=== PATIENT | female | born 1980 | race Caucasian/White ===

== ENCOUNTER 2016-04-14 23:47 | Emergency (ER) | payer OTHER ==
[2016-04-15] MEDS ORDERED: LORazepam 2 MG/ML MDV IVPUSH ONE ×2 (01:11→03:32)
[2016-04-15] MEDS ORDERED: Sodium Chloride 0.9% 1,000 ML IV SCH ×2 (01:15→03:30)
[2016-04-15] MEDS ORDERED: Ondansetron 4 MG/2 ML SDV IVPUSH ONE (02:20)
[2016-04-15] MEDS ORDERED: HYDROmorphone 1 MG/ML Syringe IVPUSH ONE (02:41)
[2016-04-15] MEDS ORDERED: cefTRIAXone 1 GM in Sodium Chloride 0.9% 50 ML IV ONE (02:41)
--- NOTE | 2016-04-15 04:45 | EDM.PDOC ---
ED HPI GI/ABDOMINAL - General Chief Complaint: Gastrointestinal Problem Stated Complaint: LOWER ABD PAIN Time Seen by Provider: 04/15/16 01:11 Source: Reports: Patient History Limitations: Reports: No limitations - History of Present Illness INITIAL COMMENTS - FREE TEXT/NARRATIVE: Nausea and vomiting: This is a 36-year-old female presents emergency room with her son, reports yesterday evening started to feel sick to her stomach began to have emesis intermittently throughout the night and day. Today is having dry heaves and severe abdominal cramping and she is now here for evaluation. Timing/Duration: Reports: Day(s): Location: generalized Quality: Reports: cramping Severity: severe Improves with: Reports: other Worsens with: Reports: other Context: Reports: sick contact Associated Symptoms (-Female): Reports: diarrhea, fever/chills, loss of appetite, nausea/vomiting - Related Data Allergies/ADRs: Allergies Allergy/AdvReac Type Severity Reaction Status Date / Time No Known Allergies Allergy Verified 04/15/16 00:59 Home Meds: Home Meds Ascorbic Acid [Vitamin C] 1,000 mg PO DAILY 04/15/16 [History] Gabapentin [Gabapentin] 300 mg PO BID 04/15/16 [History] metFORMIN [Glucophage XR] 500 mg PO DAILY 04/15/16 [History] Past Medical History - Past Health History Medical/Surgical History: Denies Medical/Surgical History Gastrointestinal History: Reports: Cholelithiasis 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: Musculoskeletal History: Reports: Back pain, chronic, Other (see below) Other Musculoskeletal History: 3 bulging discs - Infectious Disease History Infectious Disease History: Reports: Chicken pox - Past Surgical History GI Surgical History: Reports: Cholecystectomy Female Surgical History: Reports: Tubal ligation Social & Family History - Tobacco Use Smoking Status *Q: Current Status Unknown Years of Tobacco use: 20 Used Tobacco, but Quit: No Second Hand Smoke Exposure: No - Alcohol Use Days Per Week of Alcohol Use: 0 - Recreational Drug Use Recreational Drug Use: No - Living Situation & Occupation 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 Lives near in [facility]) ED ROS GENERAL - Review of Systems Review Of Systems: See Below Constitutional: Reports: fever, chills, malaise, weakness, decreased appetite, other (Dry heaves unable to eat since yesterday) HEENT: Reports: No symptoms Respiratory: Reports: no symptoms Cardiovascular: Reports: No symptoms Endocrine: Reports: no symptoms GI/Abdominal: Reports: Abdominal pain, Diarrhea, Nausea, Vomiting : Reports: frequency, pain, urgency, other (Concerns of possible bladder infection) Musculoskeletal: Reports: no symptoms Skin: Reports: no symptoms Neurological: Reports: no symptoms Psychiatric: Reports: No symptoms Hematologic/Lymphatic: Reports: no symptoms Immunologic: Reports: no symptoms ED EXAM, GI/ABD - Physical Exam Exam: See Below Exam Limited By: No limitations General Appearance: alert, anxious, moderate distress, other (Active vomiting, dry heaves noted in exam room.) Eyes: bilateral: normal appearance Ears: normal external exam, normal canal, hearing grossly normal, normal TMs Nose: normal inspection, normal mucosa, no blood Throat/Mouth: Normal inspection, Normal lips, Normal teeth, Normal gums, Normal oropharynx, Normal voice, No airway compromise Head: atraumatic, normocephalic Neck: normal inspection, supple, non-tender, full range of motion Respiratory/Chest: no respiratory distress, lungs clear, normal breath sounds, no accessory muscle use, chest non-tender Cardiovascular: normal peripheral pulses, regular rate, rhythm, no edema, no gallop, no JVD, no murmur, no rub GI/Abdominal: normal bowel sounds, soft, tenderness (Generalized) (Female) Exam: Deferred Rectal (Female) Exam: Deferred Back Exam: normal inspection, full range of motion Extremities: normal inspection Neurological: alert, oriented, normal cognition, normal gait, normal reflexes, no motor/sensory deficits Psychiatric: anxious, tearful Skin Exam: Warm, Dry, Intact, Normal color, No rash Lymphatic: no adenopathy Course - Vital Signs Last Recorded V/S: Last Vital Signs Temp 36.6 C 04/15/16 00:54 Pulse 78 04/15/16 00:54 Resp 26 H 04/15/16 00:54 BP 136/76 04/15/16 00:54 Pulse Ox 100 04/15/16 00:54 - Orders/Labs/Meds Orders: Active Orders 24 hr Category Date Time Status Abdomen Pelvis wo Cont [CT] Stat Exams 04/15/16 02:15 Taken Sodium Chloride 0.9% [Normal Saline] 1,000 ml Med 04/15/16 01:15 Active IV ASDIRECTED Sodium Chloride 0.9% [Normal Saline] 1,000 ml Med 04/15/16 03:30 Active IV ASDIRECTED Medication Orders Sodium Chloride (Normal Saline) 1,000 mls @ 999 mls/hr IV ASDIRECTED JUAN Last Admin: 04/15/16 01:47 Dose: 999 mls/hr Sodium Chloride (Normal Saline) 1,000 mls @ 500 mls/hr IV ASDIRECTED JUAN Last Admin: 04/15/16 03:25 Dose: 500 mls/hr Labs: Laboratory Tests 04/15/16 04/15/16 04/15/16 Range/Units 01:37 01:38 02:36 WBC 17.2 H (4.5-11.0) K/uL RBC 4.96 (3.30-5.50) M/uL Hgb 15.2 H D (12.0-15.0) g/dL Hct 44.4 (36.0-48.0) % MCV 90 (80-98) fL MCH 31 (27-31) pg MCHC 34 (32-36) % Plt Count 227 (150-400) K/uL Neut % (Auto) 92 H (36-66) % Lymph % (Auto) 3 L (24-44) % [place] % (Auto) 4 (2-6) % Eos % (Auto) 0 L (2-4) % Baso % (Auto) 0 (0-1) % Sodium 141 (140-148) mmol/L Potassium 3.3 L (3.6-5.2) mmol/L Chloride 105 (100-108) mmol/L Carbon Dioxide 23 (21-32) mmol/L Anion Gap 16.3 H (5.0-14.0) mmol/L BUN 25 H D (7-18) mg/dL Creatinine 1.0 (0.6-1.0) mg/dL Est Cr Clr Drug Dosing 82.06 mL/min Estimated GFR (MDRD) > 60 (>60) Glucose 131 H (74-106) mg/dL Calcium 7.9 L (8.5-10.1) mg/dL Urine Color Urine Appearance Urine pH (4.5-8.0) Ur Specific [place] (1.008-1.030) Urine Protein (NEGATIVE) mg/dL Urine Glucose (UA) (NEGATIVE) mg/dL Urine Ketones (NEGATIVE) mg/dL Urine Occult Blood (NEGATIVE) Urine Nitrite (NEGATIVE) Urine Bilirubin (NEGATIVE) Urine Urobilinogen (NORMAL) mg/dL Ur Leukocyte Esterase (NEGATIVE) Urine RBC (0-5) Urine WBC (0-5) Ur Epithelial Cells Amorphous Sediment Urine Bacteria Urine Mucus Urine HCG, Qual Negative 04/15/16 Range/Units 02:36 WBC (4.5-11.0) K/uL RBC (3.30-5.50) M/uL Hgb (12.0-15.0) g/dL Hct (36.0-48.0) % MCV (80-98) fL MCH (27-31) pg MCHC (32-36) % Plt Count (150-400) K/uL Neut % (Auto) (36-66) % Lymph % (Auto) (24-44) % [place] % (Auto) (2-6) % Eos % (Auto) (2-4) % Baso % (Auto) (0-1) % Sodium (140-148) mmol/L Potassium (3.6-5.2) mmol/L Chloride (100-108) mmol/L Carbon Dioxide (21-32) mmol/L Anion Gap (5.0-14.0) mmol/L BUN (7-18) mg/dL Creatinine (0.6-1.0) mg/dL Est Cr Clr Drug Dosing mL/min Estimated GFR (MDRD) (>60) Glucose (74-106) mg/dL Calcium (8.5-10.1) mg/dL Urine Color [place] Urine Appearance Cloudy Urine pH 7.0 (4.5-8.0) Ur Specific [place] 1.015 (1.008-1.030) Urine Protein Negative (NEGATIVE) mg/dL Urine Glucose (UA) Normal (NEGATIVE) mg/dL Urine Ketones Negative (NEGATIVE) mg/dL Urine Occult Blood Negative (NEGATIVE) Urine Nitrite Negative (NEGATIVE) Urine Bilirubin Negative (NEGATIVE) Urine Urobilinogen 1 (NORMAL) mg/dL Ur Leukocyte Esterase Moderate (NEGATIVE) Urine RBC 5-10 H (0-5) Urine WBC 5-10 H (0-5) Ur Epithelial Cells Many Amorphous Sediment Few Urine Bacteria Few Urine Mucus Few Urine HCG, Qual Meds: Medications Generic Name Dose Route Start Last Admin Trade Name Freq PRN Reason Stop Dose Admin Sodium Chloride 1,000 mls @ 999 mls/hr 04/15/16 01:15 04/15/16 01:47 Normal Saline IV 999 mls/hr ASDIRECTED JUAN Administration Sodium Chloride 1,000 mls @ 500 mls/hr 04/15/16 03:30 04/15/16 03:25 Normal Saline IV 500 mls/hr ASDIRECTED JUAN Administration Discontinued Medications Generic Name Dose Route Start Last Admin Trade Name Aaliyah PRN Reason Stop Dose Admin Hydromorphone HCl 1 mg 04/15/16 02:41 04/15/16 03:07 Dilaudid IVPUSH 04/15/16 02:42 1 mg ONETIME ONE Administration Ceftriaxone Sodium 1 gm/ 50 mls @ 100 mls/hr 04/15/16 02:41 04/15/16 03:23 Sodium Chloride IV 04/15/16 03:10 100 mls/hr ONETIME ONE Administration Lorazepam 1 mg 04/15/16 01:11 04/15/16 01:50 Ativan IVPUSH 04/15/16 01:12 1 mg ONETIME ONE Administration Lorazepam 1 mg 04/15/16 03:32 04/15/16 03:45 Ativan IVPUSH 04/15/16 03:33 1 mg ONETIME ONE Administration Ondansetron HCl 8 mg 04/15/16 02:20 04/15/16 02:32 Zofran IVPUSH 04/15/16 02:21 8 mg ONETIME ONE Administration - Re-Assessments/Exams Free Text/Narrative Re-Assessment/Exam: 04/15/16 04:43 Given IV fluids 12 L normal saline -Zofran 4 mg IV, Ativan 1 mg IV, nausea and vomiting controlled -IV Dilaudid 1 mg for abdominal pain Labs a later white count, urine with positive leukocytosis, WBCs elevated Imaging: Abdomen pelvis CT negative for appendicitis, nodule noted to lung and adrenal gland, this was reviewed with patient she is aware, advised to followup with primary care, given a copy of CT report Patient symptoms resolved with medications, we'll plan to discharge to home, with Levaquin 500 mg by mouth daily, promethazine 25 mg one to 2 by mouth Q8 when necessary nausea vomiting, no work till feeling better, followup with primary care for recheck in the next 3 days, return to ER or urgent care for any return of symptoms or increased pain, fever, chills, nausea, vomiting, or not improved. Departure - Departure Time of Disposition: 04:45 Disposition: Home, Self-Care 01 Condition: good Clinical Impression: Gastroenteritis, UTI, Urinary tract infectious disease Forms: ED Department Discharge Care Plan Goals: Urinary tract infection -Levaquin 500 mg by mouth daily -Push fluids -Rest Gastroenteritis -Promethazine 25 mg one to 2Q8 when necessary nausea -Clear liquid diet advance as tolerated -Advised no work until symptoms are resolved and patient is improved Return to clinic or ER if not improved her symptoms worsen - Problem List & Annotations (1) Gastroenteritis SNOMED Code(s): 20042407 Code(s): K52.9 - NONINFECTIVE GASTROENTERITIS AND COLITIS, UNSPECIFIED Status: Acute Priority: High Current Visit: Yes (2) UTI, Urinary tract infectious disease SNOMED Code(s): 35255238 Code(s): N39.0 - URINARY TRACT INFECTION, SITE NOT SPECIFIED Status: Acute Priority: High Current Visit: Yes - Problem List Review Problem List Initiated/Reviewed/Updated: Yes - My Orders Last 24 Hours: My Active Orders 04/15/16 01:15 Sodium Chloride 0.9% [Normal Saline] 1,000 ml IV ASDIRECTED 04/15/16 02:15 Abdomen Pelvis wo Cont [CT] Stat 04/15/16 03:30 Sodium Chloride 0.9% [Normal Saline] 1,000 ml IV ASDIRECTED - Assessment/Plan Last 24 Hours: My Active Orders 04/15/16 01:15 Sodium Chloride 0.9% [Normal Saline] 1,000 ml IV ASDIRECTED 04/15/16 02:15 Abdomen Pelvis wo Cont [CT] Stat 04/15/16 03:30 Sodium Chloride 0.9% [Normal Saline] 1,000 ml IV ASDIRECTED Plan: Urinary tract infection -Levaquin 500 mg by mouth daily -Push fluids -Rest Gastroenteritis -Promethazine 25 mg one to 2Q8 when necessary nausea -Clear liquid diet advance as tolerated -Advised no work until symptoms are resolved and patient is improved Return to clinic or ER if not improved her symptoms worse
[2016-04-15 06:26] VITALS: BP 140/78
== END 2016-04-15 05:30 | disposition home or self-care (01) ==
LOC: JP.ED 23:47
DX: K52.9 Noninfective gastroenteritis and colitis, unspecified (principal); N39.0 Urinary tract infection, site not specified; Z79.899 Other long term (current) drug therapy; Z79.84 Long term (current) use of oral hypoglycemic drugs
CPT/HCPCS: 36415; 74176; 80048; 81001; 81025; 85025; 87804; 99284; J0696; J1170; J2060; J2405; J7040; J7050

== ENCOUNTER 2019-01-17 23:40 | Emergency (ER) | payer OTHER ==
--- NOTE | 2019-01-18 00:46 | EDM.PDOC ---
ED HPI GENERAL MEDICAL PROBLEM - General Chief Complaint: Chest Pain Stated Complaint: TIGHT CHEST Time Seen by Provider: 01/18/19 00:25 Source of Information: Reports: Patient, Old Records, RN History Limitations: Reports: No Limitations - History of Present Illness INITIAL COMMENTS - FREE TEXT/NARRATIVE: 38 yo female presents after a self-limited episode of L sided chest pain associated with some blurred vision and light-headedness. Has had some recent episodes of this chest pain, but not the blurred vision. She has an Apple Watch that she activated the EKG fxn during this attack and it recorded what looked like a run of V-tach. Now in the ER she is asymptomatic. Reports having a problem with rapid transit of foods she has eaten through her GI tract. Has had some testing done for this without any answers so far. As a result has diarrhea often and sometimes incontinence. 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 (see below) (none) Left Chest Pain Score (Numeric/FACES): 1 - Related Data Allergies Allergy/AdvReac Type Severity Reaction Status Date / Time No Known Allergies Allergy Verified 01/18/19 00:12 Home Meds: Home Meds buPROPion [buPROPion XL] 300 mg PO DAILY 09/23/17 [History] Lisdexamfetamine [Vyvanse] 1 tab PO DAILY 01/18/19 [History] Potassium Chloride 10 meq PO TID #15 cap.er 01/18/19 [Rx] Past Medical History - Past Health History Medical/Surgical History: Denies Medical/Surgical History HEENT History: Reports: Impaired Vision Gastrointestinal History: Reports: Cholelithiasis Genitourinary History: Reports: Chronic Renal Insuffiency, Pyelonephritis, UTI, 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: Musculoskeletal History: Reports: Back Pain, Chronic, Other (See Below) Other Musculoskeletal History: 3 bulging discs Endocrine/Metabolic History: Reports: Obesity/BMI 30+ Dermatologic History: Reports: Eczema - Infectious Disease History Infectious Disease History: Reports: Chicken Pox - Past Surgical History GI Surgical History: Reports: Cholecystectomy, Lysis of Adhesions, Other (See Below) Female Surgical History: Reports: Tubal Ligation Social & Family History - Family History Family Medical History: Noncontributory - Tobacco Use Smoking Status *Q: Former Smoker Used Tobacco, but Quit: Yes Month/Year Tobacco Last Used: 2016 - Caffeine Use Caffeine Use: Reports: Coffee - Recreational Drug Use Recreational Drug Use: No - Living Situation & Occupation Occupation: Employed ED ROS GENERAL - Review of Systems Review Of Systems: See Below Constitutional: Reports: No Symptoms HEENT: Reports: No Symptoms Respiratory: Reports: No Symptoms Cardiovascular: Reports: Chest Pain, Edema (chronic, mild), Lightheadedness, Palpitations. Denies: Claudication, Dyspnea on Exertion, Orthopnea, Syncope Endocrine: Reports: No Symptoms GI/Abdominal: Reports: No Symptoms : Reports: No Symptoms Musculoskeletal: Reports: No Symptoms Skin: Reports: No Symptoms Neurological: Reports: No Symptoms Psychiatric: Reports: No Symptoms ED EXAM, GENERAL - Physical Exam Exam: See Below Exam Limited By: No Limitations General Appearance: Alert, WD/WN, No Apparent Distress, Obese Eye Exam: Bilateral Eye: Normal Inspection Ears: Normal External Exam, Normal Canal, Hearing Grossly Normal, Normal TMs Ear Exam: Bilateral Ear: Auricle Normal, Canal Normal Nose: Normal Inspection, No Blood Throat/Mouth: Normal Inspection, Normal Lips, Normal Oropharynx, Normal Voice, No Airway Compromise Head: Atraumatic, Normocephalic Neck: Normal Inspection Respiratory/Chest: No Respiratory Distress, Lungs Clear, Normal Breath Sounds, No Accessory Muscle Use Cardiovascular: Regular Rate, Rhythm, No Edema GI/Abdominal: Normal Bowel Sounds, Soft, Non-Tender, No Distention Back Exam: Normal Inspection. No: CVA Tenderness (R), CVA Tenderness (L) Extremities: Normal Inspection, Normal Range of Motion, Non-Tender, No Pedal Edema Neurological: Alert, Oriented, CN II-XII Intact, Normal Cognition, No Motor/ Sensory Deficits Psychiatric: Normal Affect, Normal Mood Skin Exam: Warm, Dry, Intact, Normal Color, No Rash EKG INTERPRETATION EKG Date: 01/18/19 Time: 00:40 Rhythm: NSR Rate (Beats/Min): 82 [place]: Other (L posterior fascicular block) P-Wave: Present QRS: Normal ST-T: Normal QT: Normal Comparison: Change From Previous EKG (T wave inverted now in III compared with an EKG of 09/23/2017) Course - Vital Signs Last Recorded V/S: Last Vital Signs Temp 36.7 C 01/18/19 00:14 Pulse 91 01/18/19 00:14 Resp 13 01/18/19 00:14 BP 121/67 01/18/19 00:14 Pulse Ox 97 01/18/19 00:14 - Orders/Labs/Meds Orders: Active Orders 24 hr Category Date Time Status Cardiac Monitoring [RC] .As Directed Care 01/18/19 00:39 Active EKG Documentation Completion [RC] ASDIRECTED Care 01/18/19 00:40 Active EKG 12 Lead [EK] Routine Ther 01/18/19 00:40 Ordered Labs: Laboratory Tests 01/18/19 01/18/19 01/18/19 Range/Units 00:50 00:50 01:20 WBC 10.6 (4.5-11.0) K/uL RBC 4.55 (3.30-5.50) M/uL Hgb 13.6 (12.0-15.0) g/dL Hct 41.8 (36.0-48.0) % MCV 92 (80-98) fL MCH 30 (27-31) pg MCHC 33 (32-36) % Plt Count 233 (150-400) K/uL Sodium 139 L (140-148) mmol/L Potassium 3.1 L (3.6-5.2) mmol/L Chloride 104 (100-108) mmol/L Carbon Dioxide 28 (21-32) mmol/L Anion Gap 10.1 (5.0-14.0) mmol/L BUN 15 (7-18) mg/dL Creatinine 1.2 H (0.6-1.0) mg/dL Est Cr Clr Drug Dosing TNP Estimated GFR (MDRD) 51 L (>60) Glucose 191 H (74-106) mg/dL Calcium 8.3 L (8.5-10.1) mg/dL Magnesium 1.8 (1.8-2.4) mg/dL Total Bilirubin 0.6 D (0.2-1.0) mg/dL AST 21 (15-37) U/L ALT 20 (12-78) U/L Alkaline Phosphatase 86 (46-116) U/L Troponin I < 0.017 (0.000-0.056) ng/mL Total Protein 6.5 (6.4-8.2) g/dL Albumin 3.1 L (3.4-5.0) g/dL Globulin 3.4 (2.3-3.5) g/dL Albumin/Globulin Ratio 0.9 L (1.2-2.2) Meds: Medications Discontinued Medications Generic Name Dose Route Start Last Admin Trade Name Aaliyah PRN Reason Stop Dose Admin Aspirin 324 mg 01/18/19 00:48 01/18/19 00:53 Aspirin PO 01/18/19 00:49 324 mg ONETIME ONE Administration Potassium Chloride 40 meq 01/18/19 01:20 01/18/19 01:26 Potassium Chloride PO 01/18/19 01:21 40 meq ONETIME ONE Administration Departure - Departure Time of Disposition: 02:03 Disposition: Home, Self-Care 01 Condition: Fair Clinical Impression: Atypical chest pain, Hypokalemia, Hypoalbuminemia, Elevated blood sugar Prescriptions: Potassium Chloride 10 meq PO TID #15 cap.er Instructions: Nonspecific Chest Pain Referrals: Mac Hatfield MD [Primary Care Provider] - Forms: ED Department Discharge Additional Instructions: Take the potassium prescribed until gone. Eat more yogurt/kefir and bananas as both of these are good for replacing potassium and don't contribute to diarrhea. The yogurt is also a good protein source. Consider taking a little loperamide to see if this slows your GI transit. Try to get a Holter monitor or event recorder tomorrow to help track what may be happening with your heart. Return as needed. - My Orders Last 24 Hours: My Active Orders 01/18/19 00:39 Cardiac Monitoring [RC] .As Directed 01/18/19 00:40 EKG Documentation Completion [RC] ASDIRECTED EKG 12 Lead [EK] Routine - Assessment/Plan Last 24 Hours: My Active Orders 01/18/19 00:39 Cardiac Monitoring [RC] .As Directed 01/18/19 00:40 EKG Documentation Completion [RC] ASDIRECTED EKG 12 Lead [EK] Routine
[2019-01-18] MEDS ORDERED: Aspirin 81 MG Tab.Chew PO ONE (00:48)
[2019-01-18] MEDS ORDERED: Potassium Chloride 10 MEQ Cap.ER PO ONE (01:20)
[2019-01-18 01:49] VITALS: BP 121/67; PULSE 91
== END 2019-01-18 02:15 | disposition home or self-care (01) ==
LOC: JP.ED 23:40
DX: R07.89 Other chest pain (principal); E87.6 Hypokalemia; E88.09 Other disorders of plasma-protein metabolism, not elsewhere classified; R73.9 Hyperglycemia, unspecified; E66.9 Obesity, unspecified; N18.9 Chronic kidney disease, unspecified; Z68.41 Body mass index [BMI] 40.0-44.9, adult; Z87.891 Personal history of nicotine dependence
CPT/HCPCS: 36415; 80053; 83735; 84484; 85027; 93005; 99285; A9270

== ENCOUNTER 2019-02-10 16:40 | Inpatient (IN) | payer OTHER ==
[2019-02-10] MEDS ORDERED: Ondansetron 4 MG/2 ML SDV IVPUSH ONE ×2 (18:19→19:48)
[2019-02-10] MEDS ORDERED: HYDROmorphone 0.5 MG/0.5 ML Syringe IVPUSH ONE ×2 (18:19→19:36)
--- NOTE | 2019-02-10 18:20 | EDM.PDOC ---
ED HPI GENERAL MEDICAL PROBLEM - General Chief Complaint: Abdominal Pain Stated Complaint: ABM PAIN Time Seen by Provider: 02/10/19 18:05 Source of Information: Reports: Patient History Limitations: Reports: No Limitations - History of Present Illness INITIAL COMMENTS - FREE TEXT/NARRATIVE: 39-year-old female with a history of cholecystectomy and tubal ligation, also small bowel obstructions presents with 1 day of increasing pain in her abdomen, distention, nausea and vomiting and decreased bowel movements. No fevers or chills. Onset: Gradual Duration: Day(s): (24 hours) Location: Reports: Abdomen Associated Symptoms: Reports: Nausea/Vomiting. 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: Musculoskeletal History: Reports: Back Pain, Chronic, Other (See Below) Other Musculoskeletal History: 3 bulging discs Endocrine/Metabolic History: Reports: Obesity/BMI 30+ Dermatologic History: Reports: Eczema - Infectious Disease History Infectious Disease History: Reports: Chicken Pox - Past Surgical History GI Surgical History: Reports: Cholecystectomy, Lysis of Adhesions, Other (See Below) Other GI Surgeries/Procedures: bowel obstruction September of 2017 Female Surgical History: Reports: Tubal Ligation Social & Family History - Family History Family Medical History: Noncontributory - Tobacco Use Tobacco Use Comment: current some day smoker for the past 2 years - Caffeine Use Caffeine Use: Reports: Coffee - Recreational Drug Use Recreational Drug Use: No - Living Situation & Occupation Occupation: Employed ED ROS GENERAL - Review of Systems Review Of Systems: See Below Constitutional: Reports: Malaise, Decreased Appetite. Denies: Fever, Chills HEENT: Reports: No Symptoms Respiratory: Denies: Shortness of Breath Cardiovascular: Denies: Chest Pain GI/Abdominal: Reports: Abdominal Pain, Nausea, Vomiting. Denies: Diarrhea : Reports: No Symptoms Skin: Reports: No Symptoms Neurological: Denies: Headache ED EXAM, GI/ABD - Physical Exam Exam: See Below Exam Limited By: No Limitations General Appearance: Alert, Moderate Distress (Looks very uncomfortable) Eyes: Bilateral: Normal Appearance (No jaundice) Head: Atraumatic Respiratory/Chest: No Respiratory Distress, Lungs Clear Cardiovascular: Regular Rate, Rhythm. No: Tachycardia GI/Abdominal Exam: Tender (Diffuse intense tenderness to palpation and distention of the abdomen, very active bowel sounds) Neurological: Alert, Oriented Psychiatric: Anxious Skin Exam: Warm, Dry Course - Vital Signs Last Recorded V/S: Last Vital Signs Temp 99.6 F 02/10/19 18:03 Pulse 95 02/10/19 18:03 Resp 24 H 02/10/19 18:03 BP 106/58 L 02/10/19 18:03 Pulse Ox 99 02/10/19 18:03 - Orders/Labs/Meds Orders: Active Orders 24 hr Category Date Time Status Iopamidol [Isovue-300 (61%)] Med 02/10/19 19:00 Active 150 ml IV ASDIRECTED Sodium Chloride 0.9% [Normal Saline] 1,000 ml Med 02/10/19 18:30 Active IV ASDIRECTED Sodium Chloride 0.9% [Normal Saline] 80 ml Med 02/10/19 19:00 Active IV ASDIRECTED Sodium Chloride 0.9% [Saline Flush] Med 02/10/19 18:55 Active 10 ml FLUSH ASDIRECTED PRN Medication Orders Sodium Chloride (Normal Saline) 1,000 mls @ 500 mls/hr IV ASDIRECTED JUAN Last Admin: 02/10/19 18:53 Dose: 500 mls/hr Sodium Chloride (Normal Saline) 80 mls @ 3 mls/sec IV ASDIRECTED JUAN Last Admin: 02/10/19 19:10 Dose: 3 mls/sec Dextrose/Lactated Ringer's (Dextrose 5%-Lactated Ringers) 1,000 mls @ 200 mls/ hr IV ASDIRECTED JUAN Iopamidol (Isovue-300 (61%)) 150 ml IV ASDIRECTED JUAN Last Admin: 02/10/19 19:11 Dose: 150 ml Pantoprazole Sodium (Protonix Iv) 40 mg IVPUSH ONETIME ONE Stop: 02/10/19 21:57 Sodium Chloride (Saline Flush) 10 ml FLUSH ASDIRECTED PRN PRN Reason: Keep Vein Open Last Admin: 02/10/19 19:10 Dose: 10 ml Labs: Laboratory Tests 02/10/19 02/10/19 02/10/19 Range/Units 18:25 18:25 18:25 WBC 17.6 H (4.5-11.0) K/uL RBC 4.88 (3.30-5.50) M/uL Hgb 14.5 (12.0-15.0) g/dL Hct 44.7 (36.0-48.0) % MCV 92 (80-98) fL MCH 30 (27-31) pg MCHC 32 (32-36) % Plt Count 252 (150-400) K/uL Neut % (Auto) 90 H (36-66) % Lymph % (Auto) 4 L (24-44) % [place] % (Auto) 6 (2-6) % Eos % (Auto) 1 L (2-4) % Baso % (Auto) 0 (0-1) % Sodium 138 L (140-148) mmol/L Potassium 4.0 (3.6-5.2) mmol/L Chloride 103 (100-108) mmol/L Carbon Dioxide 24 (21-32) mmol/L Anion Gap 15.0 H (5.0-14.0) mmol/L BUN 17 (7-18) mg/dL Creatinine 1.0 (0.6-1.0) mg/dL Est Cr Clr Drug Dosing 82.48 mL/min Estimated GFR (MDRD) > 60 (>60) Glucose 99 (74-106) mg/dL Lactic Acid 1.1 (0.4-2.0) mmol/L Calcium 8.1 L (8.5-10.1) mg/dL Total Bilirubin 0.6 (0.2-1.0) mg/dL AST 30 (15-37) U/L ALT 24 (12-78) U/L Alkaline Phosphatase 88 (46-116) U/L Total Protein 7.1 (6.4-8.2) g/dL Albumin 3.4 (3.4-5.0) g/dL Globulin 3.7 H (2.3-3.5) g/dL Albumin/Globulin Ratio 0.9 L (1.2-2.2) Meds: Medications Generic Name Dose Route Start Last Admin Trade Name Freq PRN Reason Stop Dose Admin Sodium Chloride 1,000 mls @ 500 mls/hr 02/10/19 18:30 02/10/19 18:53 Normal Saline IV 500 mls/hr ASDIRECTED JUAN Administration Sodium Chloride 80 mls @ 3 mls/sec 02/10/19 19:00 02/10/19 19:10 Normal Saline IV 3 mls/sec ASDIRECTED JUAN Administration Dextrose/Lactated Ringer's 1,000 mls @ 200 mls/hr 02/10/19 22:00 Dextrose 5%-Lactated Ringers IV ASDIRECTED JUAN Iopamidol 150 ml 02/10/19 19:00 02/10/19 19:11 Isovue-300 (61%) IV 150 ml ASDIRECTED JUAN Administration Pantoprazole Sodium 40 mg 02/10/19 21:56 Protonix Iv IVPUSH 02/10/19 21:57 ONETIME ONE Sodium Chloride 10 ml 02/10/19 18:55 02/10/19 19:10 Saline Flush FLUSH 10 ml ASDIRECTED PRN Administration Keep Vein Open Discontinued Medications Generic Name Dose Route Start Last Admin Trade Name Freq PRN Reason Stop Dose Admin Hydromorphone HCl 0.5 mg 02/10/19 18:19 02/10/19 18:55 Dilaudid IVPUSH 02/10/19 18:20 0.5 mg ONETIME ONE Administration Hydromorphone HCl 0.5 mg 02/10/19 19:36 02/10/19 19:44 Dilaudid IVPUSH 02/10/19 19:37 0.5 mg ONETIME ONE Administration Hydromorphone HCl Confirm 02/10/19 21:56 Dilaudid Casing Tier 15 Mg In Ns 30 Ml Administered 02/10/19 21:57 Dose 15 mg IV .STK-MED ONE Ondansetron HCl 4 mg 02/10/19 18:19 02/10/19 18:54 Zofran IVPUSH 02/10/19 18:20 4 mg ONETIME ONE Administration Ondansetron HCl 4 mg 02/10/19 19:48 02/10/19 19:52 Zofran IVPUSH 02/10/19 19:49 4 mg ONETIME ONE Administration - Re-Assessments/Exams Free Text/Narrative Re-Assessment/Exam: 02/10/19 19:37 An IV was started, normal saline initiated at 500 cc an hour and the patient was given 0.5 mg of IV Dilaudid, and 4 mg of IV Zofran. CBC lactic acid CMP were obtained with the intention of the CT scan of the abdomen and pelvis. 02/10/19 19:38 White count 17,000, the rest of her labs are reassuring including a normal lactic acid. CT was ordered. Patient needed an additional 0.5 mg of IV Dilaudid. 02/10/19 20:31 After the second dose of Dilaudid and Zofran the patient markedly improved, however the CT did confirm a partial small bowel obstruction with transition point as follows Impression: 1. Mild small-bowel distention, concerning for early or partial small bowel obstruction. Transition point is seen in the right lower quadrant. No evidence of bowel perforation or pneumatosis. 2. Mild diverticulosis of the sigmoid colon without evidence of acute diverticulitis. Departure - Departure Time of Disposition: 22:00 Disposition: Admitted As Inpatient 67 Clinical Impression: Small bowel obstruction Abdominal pain Qualifiers: Abdominal location: generalized Qualified Code(s): R10.84 - Generalized abdominal pain - Discharge Information Sepsis Event Note - Evaluation Sepsis Screening Result: Possible Sepsis Risk - Focused Exam Vital Signs: Vital Signs Temp Pulse Resp BP Pulse Ox 02/10/19 18:03 99.6 F 95 24 H 106/58 L 99 02/10/19 17:34 99.6 F 95 24 H 106/58 L 99 Date Exam was Performed: 02/10/19 Time Exam was Performed: 22:03 - My Orders Last 24 Hours: My Active Orders 02/10/19 18:30 Sodium Chloride 0.9% [Normal Saline] 1,000 ml IV ASDIRECTED 02/10/19 18:55 Sodium Chloride 0.9% [Saline Flush] 10 ml FLUSH ASDIRECTED PRN 02/10/19 19:00 Iopamidol [Isovue-300 (61%)] 150 ml IV ASDIRECTED Sodium Chloride 0.9% [Normal Saline] 80 ml IV ASDIRECTED - Assessment/Plan Last 24 Hours: My Active Orders 02/10/19 18:30 Sodium Chloride 0.9% [Normal Saline] 1,000 ml IV ASDIRECTED 02/10/19 18:55 Sodium Chloride 0.9% [Saline Flush] 10 ml FLUSH ASDIRECTED PRN 02/10/19 19:00 Iopamidol [Isovue-300 (61%)] 150 ml IV ASDIRECTED Sodium Chloride 0.9% [Normal Saline] 80 ml IV ASDIRECTED
[2019-02-10] MEDS ORDERED: Sodium Chloride 0.9% 1,000 ML IV SCH (18:30)
[2019-02-10] MEDS ORDERED: Sodium Chloride 0.9% 10 ML Syringe FLUSH PRN (18:55)
[2019-02-10] MEDS ORDERED: Sodium Chloride 0.9% 80 ML IV SCH (19:00)
[2019-02-10] MEDS ORDERED: Iopamidol 612 MG/ML 200 ML Bottle IV SCH (19:00)
--- NOTE | 2019-02-10 20:22 | CRLCT ---
Indication: Abdominal pain Technique: Contrast enhanced axial CT imaging through the abdomen and pelvis. 150 mL Isovue-300 contrast agent was administered intravenously. Sagittal and coronal reconstructions are provided. Comparison: CT abdomen pelvis without contrast 09/23/2017 Findings: There are multiple mildly distended fluid filled small bowel loops in the lower abdomen, measuring up to 3.1 cm, concerning for early or partial small bowel obstruction. Transition point is noted in the right lower quadrant (axial image 114, coronal image 41). There is no evidence of small bowel pneumatosis. There is no colonic wall thickening or pericolonic inflammatory stranding. Mild diverticulosis is noted in the sigmoid colon. The appendix is uninflamed. The stomach is unremarkable. No lymphadenopathy is appreciated in the abdomen and pelvis. There is no free intraperitoneal fluid or air. There is no significant abnormality of the liver, spleen, pancreas, adrenal glands, and kidneys. There is normal enhancement of the portal venous system. There is normal caliber of the abdominal aorta. Degenerative changes are noted of the lumbosacral junction. The included lung bases are clear. Impression: 1. Mild small-bowel distention, concerning for early or partial small bowel obstruction. Transition point is seen in the right lower quadrant. No evidence of bowel perforation or pneumatosis. 2. Mild diverticulosis of the sigmoid colon without evidence of acute diverticulitis. Please note that all CT scans at this facility use dose modulation, iterative reconstruction, and/or weight-based dosing when appropriate to reduce radiation dose to as low as reasonably achievable. Dictated by Sonali Llamas MD @ Feb 10 2019 8:20PM Signed by Dr. Sonali Llamas @ Feb 10 2019 8:20PM
[2019-02-10] MEDS ORDERED: Pantoprazole 40 MG Vial IVPUSH ONE (21:56)
[2019-02-10] MEDS ORDERED: HYDROmorphone/Normal Saline 15 MG/30 ML PCA IV ONE (21:56)
[2019-02-10] MEDS ORDERED: diphenhydrAMINE 25 MG Cap PO PRN (22:01)
[2019-02-10] MEDS ORDERED: diphenhydrAMINE 50 MG/ML SDV IVPUSH PRN (22:01)
[2019-02-10] MEDS ORDERED: Ondansetron 4 MG/2 ML SDV IVPUSH PRN (22:01)
[2019-02-10] MEDS ORDERED: Naloxone 0.4 MG/ML SDV IVPUSH PRN (22:01)
[2019-02-10] MEDS ORDERED: HYDROmorphone/Normal Saline 15 MG/30 ML PCA IV SCH ×2 (22:15→22:58)
[2019-02-10] MEDS ORDERED: Pantoprazole 40 MG Vial ONE ×3 (22:36→22:41)
[2019-02-10] MEDS: Dextrose 5%-Lactated Ringers 1,000 ML IV SCH (22:45)
[2019-02-11] MEDS: diphenhydrAMINE 50 MG/ML SDV IVPUSH PRN ×2 (02:10→07:57)
[2019-02-11] MEDS: Dextrose 5%-Lactated Ringers 1,000 ML IV SCH ×4 (02:52→18:44)
[2019-02-11] MEDS: Ondansetron 4 MG/2 ML SDV IVPUSH PRN ×2 (06:01→10:39)
--- NOTE | 2019-02-11 06:12 | CRLCR ---
Indication: Follow up partial small bowel obstruction. Technique: Abdomen five views. Comparison: CT abdomen and pelvis 02/10/2019. Findings: Borderline and mildly dilated small bowel with associated air-fluid levels is similar in appearance, allowing for differences and imaging technique. No evidence of free intraperitoneal gas. Right upper quadrant surgical clips. Soft tissues elsewhere as imaged are unremarkable. Lung bases are grossly clear. Visualized osseous structures are intact. Impression: Findings concerning for partial small bowel obstruction have not significantly changed. No evidence of free intraperitoneal gas. Dictated by Edison Villagran MD @ 02/11/2019 6:11:07 AM Dictated by: Edison Villagran MD @ 02/11/2019 06:11:13 (Electronically Signed)
--- NOTE | 2019-02-11 16:03 | PN ---
DATE OF SERVICE: 02/11/2019 SUBJECTIVE: Allyson is a 39-year-old female who was admitted to the hospital yesterday, 02/10/2019, for abdominal pain with history of a small bowel obstruction. She has had a 24- hour history of increasing pain in her abdomen, distention, nausea and vomiting, and decreased bowel movements for the past 24 hours. No fever or chills. She reports abdominal pain is less this morning. 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 Currently, n.p.o. except ice chips. Reports she is not passing any flatus. REVIEW OF SYSTEMS: Remainder of review of systems negative for any pertinent positives and negatives. OBJECTIVE: GENERAL: Allyson is a pleasant 39-year-old female. VITAL SIGNS: TPR is 98.1, 61, 12. Blood pressure 100/52. HEENT: Negative. NECK: Supple. HEART: Regular rate and rhythm. LUNGS: Clear. ABDOMEN: Soft with minimal tenderness noted, bilateral lower right and left quadrants. EXTREMITIES: Without peripheral edema. NEUROLOGIC: Cranial nerves 2 through 12 intact. SKIN: Without rash. PSYCHIATRIC: Mood and affect appropriate. ASSESSMENT: 1. Partial small bowel obstruction. Transition point is right lower quadrant. 2. Mild diverticulosis of the sigmoid colon without evidence of acute diverticulitis. PLAN: 1. D5LR at 150 mL per hour. 2. Check CBC, CMP, mag, and phos in a.m. 3. Check flat and upright abdominal x-ray in a.m. 4. Remain n.p.o. We will evaluate p.r.n. or in a.m. Gloria Lewis PA-C /[id number]
[2019-02-11] MEDS ORDERED: Ondansetron 4 MG Tab.DIS PO PRN (19:01)
[2019-02-11] MEDS ORDERED: HYDROmorphone 2 MG Tab PO PRN (19:02)
[2019-02-11] MEDS: Acetaminophen 325 MG Tab PO PRN (20:17)
[2019-02-11] MEDS: diphenhydrAMINE 25 MG Cap PO PRN (20:18)
--- NOTE | 2019-02-12 05:14 | CRLCR ---
INDICATION: Follow-up small bowel obstruction. COMPARISON: From yesterday. FINDINGS: Erect and supine films of the abdomen were obtained. In the abdomen, there is no sign of distention of the small bowel or colon to suggest obstruction or ileus. The previously seen mild dilatation of small-bowel loops in the periumbilical region have resolved. There is no sign of free air or distinct mass. Clips are again seen in the right upper quadrant consistent with cholecystectomy in The osseous structures are normal in appearance for the patient`s age. The lung bases are clear. IMPRESSION: Resolution of previously seen mild partial small bowel obstruction. Normal bowel gas pattern. Dictated by Jonathan Rodgers MD @ Feb 12 2019 5:09AM Signed by Dr. Jonathan Rodgers @ Feb 12 2019 5:11AM
[2019-02-12 07:51] VITALS: BP 89/44; PULSE 59
[2019-02-12] MEDS: Acetaminophen 325 MG Tab PO PRN (10:31)
[2019-02-12] MEDS: diphenhydrAMINE 25 MG Cap PO PRN (10:32)
--- NOTE | 2019-02-14 11:22 | DISCH ---
FINAL DIAGNOSIS: Partial small-bowel obstruction. SECONDARY DIAGNOSIS: Past history of previous adhesive small bowel obstruction requiring surgery. OPERATIVE PROCEDURES: None. SUMMARY: This 39-year-old presenting with crampy abdominal pain, nausea, and vomiting. CT scan was suggestive of a high-grade complete or partial small bowel obstruction. She was admitted overnight with IV hydration. She did not require an NG tube. Over the next 24 hours, the GI tract seemed to open up and she began passing gas and overnight has now tolerated a liquid diet of around a liter without any nausea, vomiting, crampy abdominal pain. Her upper abdomen did not presently seemed to be distended, and the abdominal x-ray this morning shows resolution of the previously seen small-bowel obstruction with virtually all of the area in the colon and rectum. At this point, she will be discharged home. We instructed her to stay on a full liquid diet for 1 week, and then be on a low residue diet long-term to avoid recurrent problems with obstruction as she probably has some areas of narrowing of the small bowel lumen related to adhesions. Followup with Surgery will be p.r.n.
== END 2019-02-12 11:10 | disposition home or self-care (01) | DRG 389 ==
LOC: JP.ED 16:40 → JP.ICU 20:52 → JP.2SS 02-11 16:05
PROVIDERS: ADMIT Surgery; ATTEND Surgery
DX: K56.51 Intestinal adhesions [bands], with partial obstruction (principal); Z68.41 Body mass index [BMI] 40.0-44.9, adult; K57.30 Diverticulosis of large intestine without perforation or abscess without bleeding; H54.7 Unspecified visual loss; N18.9 Chronic kidney disease, unspecified; G89.29 Other chronic pain; M54.9 Dorsalgia, unspecified; E66.9 Obesity, unspecified; Z90.49 Acquired absence of other specified parts of digestive tract; Z98.51 Tubal ligation status; Z87.440 Personal history of urinary (tract) infections
CPT/HCPCS: 36415; 74019; 74177; 80053; 83605; 83735; 84100; 85025; 85027; 96361; 96374; 96375; 96376; 99285-25; A9270-GY; C9113; J1170; J1200; J2405; J7030; J7050; J7121; Q9967

== ENCOUNTER 2019-07-03 02:33 | Emergency (ER) | payer OTHER ==
--- NOTE | 2019-07-03 02:53 | EDM.PDOC ---
ED HPI GENERAL MEDICAL PROBLEM - General Chief Complaint: Cardiovascular Problem Stated Complaint: HIGH HEART RATE Time Seen by Provider: 07/03/19 02:44 Source of Information: Reports: Patient, RN Notes Reviewed History Limitations: Reports: No Limitations - History of Present Illness INITIAL COMMENTS - FREE TEXT/NARRATIVE: 39-year-old female presents emergency department a complaint of palpitations, she stated it started earlier this morning she did grab her iPhone was able to clam picker a rate that was in the 140s her iPhone stated she was having a rhythm consistent with ventricular tachycardia. 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: Musculoskeletal History: Reports: Back Pain, Chronic, Other (See Below) Other Musculoskeletal History: 3 bulging discs Psychiatric History: Reports: Depression Endocrine/Metabolic History: Reports: Obesity/BMI 30+ Dermatologic History: Reports: Eczema - Infectious Disease History Infectious Disease History: Reports: Chicken Pox - Past Surgical History GI Surgical History: Reports: Cholecystectomy, Lysis of Adhesions, Other (See Below) Other GI Surgeries/Procedures: bowel obstruction September of 2017 Female Surgical History: Reports: Tubal Ligation Social & Family History - Family History Family Medical History: Noncontributory - Tobacco Use Smoking Status *Q: Current Every Day Smoker Years of Tobacco use: 2 Packs/Tins Daily: 0.5 - Caffeine Use Caffeine Use: Reports: Coffee - Recreational Drug Use Recreational Drug Use: No - Living Situation & Occupation Occupation: Employed ED ROS GENERAL - Review of Systems Review Of Systems: See Below Constitutional: Reports: No Symptoms HEENT: Reports: No Symptoms Respiratory: Reports: Shortness of Breath Cardiovascular: Reports: Palpitations GI/Abdominal: Reports: No Symptoms : Reports: No Symptoms Musculoskeletal: Reports: No Symptoms Skin: Reports: No Symptoms Neurological: Reports: Numbness, Tingling ED EXAM, GENERAL - Physical Exam Exam: See Below Exam Limited By: No Limitations General Appearance: Alert, WD/WN, Anxious Respiratory/Chest: No Respiratory Distress, Lungs Clear, Normal Breath Sounds, No Accessory Muscle Use, Chest Non-Tender Cardiovascular: Regular Rate, Rhythm, No Murmur GI/Abdominal: Soft, Non-Tender Course - Vital Signs Last Recorded V/S: Last Vital Signs Temp 97.8 F 07/03/19 02:38 Pulse 93 07/03/19 03:24 Resp 14 07/03/19 03:24 BP 126/51 L 07/03/19 03:24 Pulse Ox 100 07/03/19 02:38 - Orders/Labs/Meds Orders: Active Orders 24 hr Category Date Time Status Cardiac Monitoring [RC] .As Directed Care 07/03/19 02:49 Active EKG Documentation Completion [RC] ASDIRECTED Care 07/03/19 02:50 Active EKG 12 Lead [EK] Stat Ther 07/03/19 02:49 Ordered Labs: Laboratory Tests 07/03/19 07/03/19 Range/Units 03:00 03:00 WBC 15.1 H (4.5-11.0) K/uL RBC 4.88 (3.30-5.50) M/uL Hgb 14.8 D (12.0-15.0) g/dL Hct 44.9 (36.0-48.0) % MCV 92 (80-98) fL MCH 30 (27-31) pg MCHC 33 (32-36) % Plt Count 278 (150-400) K/uL Neut % (Auto) 67 H (36-66) % Lymph % (Auto) 24 (24-44) % [place] % (Auto) 7 H (2-6) % Eos % (Auto) 1 L (2-4) % Baso % (Auto) 1 (0-1) % Sodium 141 (140-148) mmol/L Potassium 4.2 (3.6-5.2) mmol/L Chloride 104 (100-108) mmol/L Carbon Dioxide 25 (21-32) mmol/L Anion Gap 11.7 (5.0-14.0) mmol/L BUN 16 D (7-18) mg/dL Creatinine 1.4 H (0.6-1.0) mg/dL Est Cr Clr Drug Dosing 58.92 mL/min Estimated GFR (MDRD) 42 L (>60) Glucose 176 H (74-106) mg/dL Calcium 8.6 (8.5-10.1) mg/dL Total Bilirubin 0.4 (0.2-1.0) mg/dL AST 17 (15-37) U/L ALT 20 (12-78) U/L Alkaline Phosphatase 83 (46-116) U/L Troponin I < 0.017 (0.000-0.056) ng/mL Total Protein 7.0 (6.4-8.2) g/dL Albumin 3.7 (3.4-5.0) g/dL Globulin 3.3 (2.3-3.5) g/dL Albumin/Globulin Ratio 1.1 L (1.2-2.2) Departure - Departure Time of Disposition: 03:40 Disposition: Home, Self-Care 01 Condition: Fair Clinical Impression: Palpitations Instructions: Palpitations, [id number] Referrals: Mac Hatfield MD [Primary Care Provider] - Forms: ED Department Discharge Additional Instructions: Use Ativan as needed if the numbness and tingling in the fingertips return, please follow-up with your primary care and/or drywall contractor for further evaluation of palpitations, call or return to the emergency department worsening of symptoms Sepsis Event Note - Evaluation Sepsis Screening Result: No Definite Risk - Focused Exam Vital Signs: Vital Signs Temp Pulse Resp BP Pulse Ox 07/03/19 03:24 93 14 126/51 L 07/03/19 02:38 97.8 F 96 21 H 128/51 L 100 Date Exam was Performed: 07/03/19 Time Exam was Performed: 03:39 - My Orders Last 24 Hours: My Active Orders 07/03/19 02:49 Cardiac Monitoring [RC] .As Directed EKG 12 Lead [EK] Stat 07/03/19 02:50 EKG Documentation Completion [RC] ASDIRECTED - Assessment/Plan Last 24 Hours: My Active Orders 07/03/19 02:49 Cardiac Monitoring [RC] .As Directed EKG 12 Lead [EK] Stat 07/03/19 02:50 EKG Documentation Completion [RC] ASDIRECTED Plan: Assessment Acuity = acute Site and laterality = palpitations Etiology = unknown Manifestations = numbness and tingling in the fingertips now resolved Location of injury = Home Lab values = WBC elevated 15.1 consistent leukocytosis, creatinine elevated 1.4 consistent with chronic renal failure stage G3 3 a, troponin is negative EKG demonstrates a sinus rhythm no ST elevations or depressions Plan Talk to her about a Holter monitor which she has had in the past she is going to follow-up with her drywall contractor for review in the meantime prescription written for Ativan 1 mg p.o. 3 times daily as needed to be used as needed if the numbness and tingling in her fingertips returns This note was dictated using [employer] voice recognition software please call with any questions on syntax or grammar.
[2019-07-03 03:25] VITALS: BP 126/51; PULSE 93
== END 2019-07-03 03:49 | disposition home or self-care (01) ==
LOC: JP.ED 02:33
DX: R00.2 Palpitations (principal); E66.9 Obesity, unspecified; F17.210 Nicotine dependence, cigarettes, uncomplicated; Z68.41 Body mass index [BMI] 40.0-44.9, adult
CPT/HCPCS: 36415; 80053; 84484; 85025; 93005; 99285-25

== ENCOUNTER 2021-07-10 07:20 | Emergency (ER) | payer OTHER ==
[2021-07-10] MEDS ORDERED: Ondansetron 4 MG/2 ML SDV IVPUSH ONE (07:49)
[2021-07-10] MEDS ORDERED: HYDROmorphone 0.5 MG/0.5 ML Syringe IVPUSH ONE ×2 (07:49→08:51)
[2021-07-10] MEDS ORDERED: Sodium Chloride 0.9% 1,000 ML IV SCH (08:00)
[2021-07-10 08:31] VITALS: BP 97/60; PULSE 57
[2021-07-10] MEDS ORDERED: Pantoprazole 40 MG Vial IVPUSH ONE (09:00)
== END 2021-07-10 11:15 | disposition home or self-care (01) ==
LOC: JP.ED 07:20
DX: R10.84 Generalized abdominal pain (principal); R11.2 Nausea with vomiting, unspecified; E66.9 Obesity, unspecified; Z68.30 Body mass index [BMI] 30.0-30.9, adult; Z90.49 Acquired absence of other specified parts of digestive tract; Z79.899 Other long term (current) drug therapy; Z79.84 Long term (current) use of oral hypoglycemic drugs
CPT/HCPCS: 36415; 74176; 80053; 83605; 83690; 85025; 96361; 96374; 96375; 96376; 99284; C9113; J1170; J2405; J7030

== ENCOUNTER 2021-09-30 19:38 | Emergency (ER) | payer OTHER ==
[2021-09-30 20:25] VITALS: BP 145/64; PULSE 103
[2021-09-30] MEDS ORDERED: Ketorolac 30 MG/ML SDV IM ONE (20:52)
[2021-09-30] MEDS ORDERED: Iopamidol 612 MG/ML 100 ML Bottle IV PRN (21:02)
[2021-09-30] MEDS ORDERED: Sodium Chloride 0.9% 50 ML IV SCH (21:15)
[2021-09-30] MEDS ORDERED: Ketorolac 30 MG/ML SDV IVPUSH ONE (21:29)
[2021-09-30 21:34] LABS: ESTIMATED GFR 65 mL/min (>60)
[2021-09-30] MEDS ORDERED: Morphine 10 MG/ML Syringe IM ONE (22:33)
[2021-09-30] MEDS ORDERED: Morphine 10 MG/ML Syringe IVPUSH ONE (22:48)
== END 2021-09-30 23:39 | disposition other institution (70) ==
LOC: JP.ED 19:38
DX: K57.20 Diverticulitis of large intestine with perforation and abscess without bleeding (principal); F17.210 Nicotine dependence, cigarettes, uncomplicated; E66.9 Obesity, unspecified; Z68.30 Body mass index [BMI] 30.0-30.9, adult; Z79.899 Other long term (current) drug therapy; Z86.16 Personal history of COVID-19; Z90.49 Acquired absence of other specified parts of digestive tract
CPT/HCPCS: 36415; 74177; 80053; 85025; 85651; 86140; 96374; 96375; 99284; J1885; J2270; J3490; Q9967

== ENCOUNTER 2024-03-07 05:05 | Inpatient (IN) | payer OTHER ==
[2024-03-07 05:48] LABS: BASOPHILS ABSOLUTE AUTO 0.14 K/uL (0.00-0.10); BASOPHILS PERCENT AUTO 1.1 % (0.1-1.3); EOSINOPHILS ABSOLUTE AUTO 0.17 K/uL (0.00-0.40); EOSINOPHILS PERCENT AUTO 1.4 % (0.0-5.4); HEMOGLOBIN 15.5 g/dL (11.2-15.5); IMMATURE GRAN PERCENT AUTO 0.8 % (0.0-0.7); LYMPHOCYTES ABSOLUTE AUTO 1.71 K/uL (0.8-3.3); LYMPHOCYTES PERCENT AUTO 13.9 % (11.4-47.7); MEAN CORPUSCULAR HEMOGLOBIN 30.6 pg (31.6-35.5); MEAN CORPUSCULAR HGB CONC 34.4 g/dL (31.6-35.5); MEAN CORPUSCULAR VOLUME 88.9 fL (81.4-99.0); MONOCYTES ABSOLUTE AUTO 0.78 K/uL (0.20-0.90); MONOCYTES PERCENT AUTO 6.3 % (3.3-12.6); NEUTROPHILS ABSOLUTE AUTO 9.39 K/uL (1.0-7.6); NEUTROPHILS PERCENT AUTO 76.5 % (40.0-78.1); PLATELET COUNT,PLT 281 K/uL (130-375); RED BLOOD CELL COUNT 5.06 M/uL (3.77-5.24); WHITE BLOOD CELL COUNT,WBC 12.3 K/uL (3.2-11.0)
[2024-03-07] MEDS: Sodium Chloride 0.9% 1,000 ML IV SCH ×2 (05:54→07:58)
[2024-03-07] MEDS: Ondansetron 4 MG/2 ML SDV IVPUSH ONE ×2 (05:54→10:37)
[2024-03-07] MEDS: HYDROmorphone 1 MG/ML Syringe IVPUSH ONE (05:54)
[2024-03-07 06:05] LABS: ALANINE AMINOTRANSFERASE,ALT 19 U/L (12-78); ALBUMIN 3.7 g/dL (3.4-5.0); ALKALINE PHOSPHATASE 76 U/L (46-116); ASPARTATE AMNIOTRANSFERASE,AST 19 U/L (15-37); BILIRUBIN TOTAL 0.8 mg/dL (0.2-1.0); BLOOD UREA NITROGEN,BUN 18 mg/dL (7-18); CALCIUM 8.9 mg/dL (8.5-10.1); CARBON DIOXIDE,CO2 22 mmol/L (21-32); CHLORIDE,CL 105 mmol/L (100-108); CREATININE 1.2 mg/dL (0.6-1.0); EST CRCL DRUG DOSING (CG) 63.17 mL/min; ESTIMATED GFR 58 mL/min (>60); GLUCOSE RANDOM 116 mg/dL (74-106); POTASSIUM,K 3.7 mmol/L (3.6-5.2); PROTEIN TOTAL,TP 7.5 g/dL (6.4-8.2); SODIUM,NA 138 mmol/L (140-148)
[2024-03-07 06:14] LABS: ANION GAP 14.7 mmol/L (5.0-14.0)
[2024-03-07] MEDS: Iopamidol 612 MG/ML 100 ML Bottle IV SCH (06:44)
[2024-03-07] MEDS: Sodium Chloride 0.9% 10 ML Syringe FLUSH PRN (06:45)
[2024-03-07] MEDS: Sodium Chloride 0.9% 60 ML IV SCH (06:45)
[2024-03-07] MEDS ORDERED: Naloxone 0.4 MG/ML SDV IVPUSH PRN ×2 (07:06→11:51)
[2024-03-07] MEDS: HYDROmorphone 1 MG/ML Syringe IVPUSH PRN (07:20)
[2024-03-07 11:00] LABS: APPEARANCE,URINE CLEAR (CLEAR); BILIRUBIN,URINE NEGATIVE (NEGATIVE); COLOR,URINE YELLOW (YELLOW); GLUCOSE,URINE NEGATIVE (NEGATIVE); KETONES,URINE NEGATIVE (NEGATIVE); LEUKOCYTE ESTERASE,URINE NEGATIVE (NEGATIVE); NITRITE,URINE NEGATIVE (NEGATIVE); OCCULT BLOOD,URINE NEGATIVE (NEGATIVE); PROTEIN,URINE NEGATIVE (NEGATIVE); UROBILINOGEN,URINE 0.2 EU/dL (0.2-1.0)
[2024-03-07 11:09] LABS: AMORPHOUS SEDIMENT,URINE NOT SEEN; BACTERIA,URINE RARE; EPITHELIAL CELLS,URINE NOT SEEN; MUCUS,URINE NOT SEEN; RBC,URINE 0-5 (0-5); WBC,URINE 0-5 (0-5)
[2024-03-07] MEDS ORDERED: Morphine 2 MG/ML SYRINGE IVPUSH PRN (11:51)
[2024-03-07] MEDS ORDERED: Acetaminophen 650 MG Supp RECTAL PRN (11:51)
[2024-03-07] MEDS: Lactated Ringers 1,000 ML IV SCH (14:31)
[2024-03-07] MEDS: HYDROmorphone 0.5 MG/0.5 ML Syringe IVPUSH PRN (14:32)
[2024-03-07] MEDS: Ondansetron 4 MG/2 ML SDV IV PRN (18:34)
[2024-03-08 05:46] LABS: HEMATOCRIT 37.6 % (34.3-46.0); HEMOGLOBIN 12.8 g/dL (11.2-15.5); MEAN CORPUSCULAR HEMOGLOBIN 30.9 pg (31.6-35.5); MEAN CORPUSCULAR VOLUME 90.8 fL (81.4-99.0); RED BLOOD CELL COUNT 4.14 M/uL (3.77-5.24); WHITE BLOOD CELL COUNT,WBC 8.7 K/uL (3.2-11.0)
[2024-03-08 06:11] LABS: A/G RATIO 0.9 (1.2-2.2); ALANINE AMINOTRANSFERASE,ALT 16 U/L (12-78); ALBUMIN 2.7 g/dL (3.4-5.0); ALKALINE PHOSPHATASE 61 U/L (46-116); ANION GAP 9.5 mmol/L (5.0-14.0); ASPARTATE AMNIOTRANSFERASE,AST 18 U/L (15-37); BILIRUBIN DIRECT 0.22 mg/dL (0.0-0.2); BILIRUBIN INDIRECT 0.88; BILIRUBIN TOTAL 1.1 mg/dL (0.2-1.0); BLOOD UREA NITROGEN,BUN 10 mg/dL (7-18); CALCIUM 8.1 mg/dL (8.5-10.1); CARBON DIOXIDE,CO2 24 mmol/L (21-32); CHLORIDE,CL 108 mmol/L (100-108); EST CRCL DRUG DOSING (CG) 75.81 mL/min; ESTIMATED GFR 72 mL/min (>60); GLUCOSE RANDOM 80 mg/dL (74-106); MAGNESIUM 1.6 mg/dL (1.8-2.4); POTASSIUM,K 3.6 mmol/L (3.6-5.2); PROTEIN TOTAL,TP 5.7 g/dL (6.4-8.2); SODIUM,NA 141 mmol/L (140-148)
[2024-03-08] MEDS: diphenhydrAMINE 50 MG/ML SDV IVPUSH ONE (06:58)
[2024-03-08] MEDS: Magnesium Sulfate/Water Premix 2 GM in Premix Bag 1 BAG IV ONE (09:52)
[2024-03-08] MEDS: Enoxaparin 40 MG/0.4 ML Syringe SUBCUT SCH (09:58)
[2024-03-09 05:14] VITALS: BP 93/54; PULSE 56
[2024-03-09 05:18] LABS: HEMATOCRIT 37.1 % (34.3-46.0); HEMOGLOBIN 12.7 g/dL (11.2-15.5); MEAN CORPUSCULAR HEMOGLOBIN 30.8 pg (31.6-35.5); MEAN CORPUSCULAR HGB CONC 34.2 g/dL (31.6-35.5); MEAN CORPUSCULAR VOLUME 89.8 fL (81.4-99.0); RED BLOOD CELL COUNT 4.13 M/uL (3.77-5.24); WHITE BLOOD CELL COUNT,WBC 8.2 K/uL (3.2-11.0)
[2024-03-09 05:50] LABS: ALBUMIN 2.8 g/dL (3.4-5.0); BLOOD UREA NITROGEN,BUN 8 mg/dL (7-18); CALCIUM 7.9 mg/dL (8.5-10.1); CARBON DIOXIDE,CO2 27 mmol/L (21-32); CHLORIDE,CL 107 mmol/L (100-108); CREATININE 1.1 mg/dL (0.6-1.0); EST CRCL DRUG DOSING (CG) 68.92 mL/min; ESTIMATED GFR 64 mL/min (>60); GLUCOSE RANDOM 85 mg/dL (74-106); PHOSPHORUS 2.7 mg/dL (2.5-4.9); POTASSIUM,K 3.4 mmol/L (3.6-5.2); SODIUM,NA 142 mmol/L (140-148)
[2024-03-09 05:59] LABS: ANION GAP 11.4 mmol/L (5.0-14.0)
[2024-03-09] MEDS ORDERED: Acetaminophen 500 MG Tab PO PRN (09:29)
== END 2024-03-09 12:42 | disposition home health service (06) | DRG 389 ==
LOC: JP.ED 05:05 → JP.ICU 11:51
PROVIDERS: ADMIT Hospitalist; ATTEND Hospitalist
DX: K56.7 Ileus, unspecified (principal); N17.9 Acute kidney failure, unspecified; R63.0 Anorexia; H54.7 Unspecified visual loss; N18.30 Chronic kidney disease, stage 3 unspecified; F17.210 Nicotine dependence, cigarettes, uncomplicated; D72.829 Elevated white blood cell count, unspecified; E66.9 Obesity, unspecified; E28.2 Polycystic ovarian syndrome; Z79.899 Other long term (current) drug therapy; Z91.018 Allergy to other foods; Z86.16 Personal history of COVID-19; Z98.890 Other specified postprocedural states; Z90.49 Acquired absence of other specified parts of digestive tract; Z87.440 Personal history of urinary (tract) infections; Z98.51 Tubal ligation status
CPT/HCPCS: 36415; 74177; 80053; 80069; 80076; 81001; 83735; 85025; 85027; 86140; 96361; 96374; 96375; 96376; 99222; 99232; 99239; 99285; 99285-25; J1171; J1200; J2405; J3475; J7030; J7120; Q9967